=== PATIENT | male | born 1940 | race Caucasian/White ===

== ENCOUNTER 2021-11-17 11:29 | Day surgery (SDC) | payer MEDICARE ==
[~2021-11-17] VITALS: Ht 175.3 cm; Wt 68.0 kg
[~2021-11-17 11:29] MED LIST: BETIMOL0.5 % OS; EXFORGE1 TAB PO; FOLIC ACID1 MG PO; OMEPRAZOLE DR40 MG PO; SILODOSIN4 MG PO; VITAMIN B-12500 MCG PO; XELPROS0.005 % OU
[2021-11-17 12:34] LABS: HEMATOCRIT 38.5 % (39.0-50.0); HEMOGLOBIN 12.5 g/dl (14.0-18.0); IMMATURE GRANULOCYTES 0.2 % (0.0-5.0); MEAN CELL VOLUME 97.2 fL CALC (80.0-100.0); MEAN CORPUSCULAR HGB 31.6 pG CALC (26.0-32.0); MEAN CORPUSCULAR HGB CONC 32.5 g/dL CAL (32.0-36.0); NEUT# 2.33 thou/uL (1.82-7.42); RED BLOOD COUNT 3.96 mill/uL (4.70-6.10); RED CELL DISTRI WIDTH 13.6 % (11.5-15.5)
[2021-11-17 12:35] LABS: ALBUMIN 4.8 g/dL (3.2-5.0); BILIRUBIN, TOTAL 0.8 mg/dL (0.0-1.4); CREATININE 1.4 mg/dL (0.7-1.3); POTASSIUM 4.9 mmol/l (3.5-5.1); TOTAL PROTEIN 8.3 g/dL (6.3-8.2)
[2021-11-17 14:57] VITALS: BP 144/81
== END 2021-11-17 15:25 | disposition home or self-care (01) ==
LOC: ORM 11:29
PROVIDERS: ATTEND Urology
PROC: 0VB08ZZ Excision of Prostate, Via Natural or Artificial Opening Endoscopic (ICD-10-PCS; principal; 2021-11-17)
DX: N40.1 Benign prostatic hyperplasia with lower urinary tract symptoms (principal); N13.8 Other obstructive and reflux uropathy; R35.0 Frequency of micturition; I12.9 Hypertensive chronic kidney disease with stage 1 through stage 4 chronic kidney disease, or unspecified chronic kidney disease; N18.4 Chronic kidney disease, stage 4 (severe); I25.10 Atherosclerotic heart disease of native coronary artery without angina pectoris; K21.9 Gastro-esophageal reflux disease without esophagitis; E78.5 Hyperlipidemia, unspecified; Z85.46 Personal history of malignant neoplasm of prostate; Z85.820 Personal history of malignant melanoma of skin; Z87.891 Personal history of nicotine dependence; Z92.3 Personal history of irradiation
CPT/HCPCS: J1956

== ENCOUNTER 2022-04-28 12:55 | Inpatient (IN) | payer MEDICARE ==
[~2022-04-28] VITALS: Ht 175.3 cm; Wt 70.0 kg
[2022-04-28] VITALS (7 sets, daily range): BP systolic 123–136; BP diastolic 66–88
[2022-04-28 14:26] LABS: BASO% 0.4 % (0-3); EOS% 2.6 % (0-8); IMMATURE GRANULOCYTES 0.7 % (0.0-5.0); LYMPH% 12.4 % (15-41); MEAN CELL VOLUME 101.7 fL CALC (80.0-100.0); MEAN CORPUSCULAR HGB 32.3 pG CALC (26.0-32.0); MEAN CORPUSCULAR HGB CONC 31.8 g/dL CAL (32.0-36.0); MONO% 10.3 % (2-13); NEUT# 5.67 thou/uL (1.82-7.42); NEUT% 73.6 % (42-76); RED BLOOD COUNT 2.97 mill/uL (4.70-6.10); RED CELL DISTRI WIDTH 13.1 % (11.5-15.5)
[2022-04-28 14:27] LABS: ALBUMIN 3.9 g/dL (3.2-5.0); CREATININE 1.4 mg/dL (0.7-1.3); TOTAL PROTEIN 7.6 g/dL (6.3-8.2)
[2022-04-28 14:39] LABS: HEMATOCRIT 30.2 % (39.0-50.0); HEMOGLOBIN 9.6 g/dl (14.0-18.0)
[2022-04-28 14:40] LABS: BILIRUBIN, TOTAL 0.3 mg/dL (0.2-1.3); POTASSIUM 3.4 mmol/l (3.5-5.1)
[2022-04-28] MEDS ORDERED: ASPIRIN81 MG PO (15:34)
[2022-04-28] MEDS ORDERED: ATORVASTATIN CA40 MG PO (15:34)
[2022-04-28] MEDS ORDERED: NORVASC5 M1 PO (15:34)
[2022-04-28] MEDS ORDERED: RISPERDAL0.5 MG PO (15:35)
[2022-04-28] MEDS ORDERED: PROAIR HFA IN (15:37)
[2022-04-29] VITALS (8 sets, daily range): BP systolic 111–123; BP diastolic 58–69
[2022-04-29 06:08] LABS: HEMOGLOBIN 9.2 g/dl (14.0-18.0); MEAN CELL VOLUME 101.4 fL CALC (80.0-100.0); MEAN CORPUSCULAR HGB 32.2 pG CALC (26.0-32.0); MEAN CORPUSCULAR HGB CONC 31.7 g/dL CAL (32.0-36.0); RED BLOOD COUNT 2.86 mill/uL (4.70-6.10)
[2022-04-29 06:45] LABS: ANION GAP 8 (6-22 (CALC)); BUN 17 mg/dL (8-23); BUN/CREATININE RATIO 15 (12-20 (CALC)); CARBON DIOXIDE 23 mmol/l (22-30); CHLORIDE 113 mmol/l (95-108); CREATININE 1.2 mg/dL (0.7-1.3); GFR FOR AFR.AMER. > 60 ML/MIN (>=60 (CALC)); GFR OTHER RACES 58 ML/MIN (>=60 (CALC)); MAGNESIUM 1.9 mg/dL (1.6-2.3); POTASSIUM 3.1 mmol/l (3.5-5.1); SODIUM 141 mmol/l (137-146)
[2022-04-29 18:40] LABS: C. DIFFICILE TOXIN A&B NEGATIVE (NEGATIVE)
[2022-04-30] VITALS (8 sets, daily range): BP systolic 103–119; BP diastolic 59–72
[2022-04-30 05:09] LABS: HEMATOCRIT 27.8 % (39.0-50.0); HEMOGLOBIN 8.7 g/dl (14.0-18.0); MEAN CELL VOLUME 101.8 fL CALC (80.0-100.0); MEAN CORPUSCULAR HGB 31.9 pG CALC (26.0-32.0); MEAN CORPUSCULAR HGB CONC 31.3 g/dL CAL (32.0-36.0); RED BLOOD COUNT 2.73 mill/uL (4.70-6.10)
[2022-04-30 05:21] LABS: ANION GAP 9 (6-22 (CALC)); BUN 18 mg/dL (8-23); BUN/CREATININE RATIO 17 (12-20 (CALC)); CARBON DIOXIDE 22 mmol/l (22-30); CHLORIDE 115 mmol/l (95-108); CREATININE 1.1 mg/dL (0.7-1.3); GFR FOR AFR.AMER. > 60 ML/MIN (>=60 (CALC)); GFR OTHER RACES > 60 ML/MIN (>=60 (CALC)); MAGNESIUM 1.7 mg/dL (1.6-2.3); POTASSIUM 3.8 mmol/l (3.5-5.1); SODIUM 142 mmol/l (137-146)
[2022-05-01 04:09] VITALS: BP 111/71
[2022-05-01 05:59] VITALS: BP 115/74
[2022-05-01 09:25] VITALS: BP 128/77
[2022-05-01 09:28] VITALS: BP 128/77
[2022-05-01] MEDS ORDERED: PLAVIX75 MG PO (10:21)
[2022-05-01] MEDS ORDERED: AUGMENTIN500TAB PO (10:24)
== END 2022-05-01 15:13 | DRG 280 ==
LOC: ED 12:55 → ED-I 17:25 → ED 17:51 → MS2 17:52
PROVIDERS: Emergency Medicine; ADMIT Internal Medicine; ATTEND Internal Medicine
DX: I22.2 Subsequent non-ST elevation (NSTEMI) myocardial infarction (principal); J18.9 Pneumonia, unspecified organism; F03.911 Unspecified dementia, unspecified severity, with agitation; I21.9 Acute myocardial infarction, unspecified; I12.9 Hypertensive chronic kidney disease with stage 1 through stage 4 chronic kidney disease, or unspecified chronic kidney disease; N18.9 Chronic kidney disease, unspecified; D64.9 Anemia, unspecified; F17.290 Nicotine dependence, other tobacco product, uncomplicated; S93.402A Sprain of unspecified ligament of left ankle, initial encounter; W19.XXXA Unspecified fall, initial encounter; Y92.009 Unspecified place in unspecified non-institutional (private) residence as the place of occurrence of the external cause; S92.901D Unspecified fracture of right foot, subsequent encounter for fracture with routine healing; W19.XXXD Unspecified fall, subsequent encounter; Z86.73 Personal history of transient ischemic attack (TIA), and cerebral infarction without residual deficits; Z91.81 History of falling; Z66 Do not resuscitate; Z85.46 Personal history of malignant neoplasm of prostate; Z20.822 Contact with and (suspected) exposure to COVID-19
CPT/HCPCS: G0378; J1650